=== PATIENT | female | born 1990 | race Caucasian/White ===

== ENCOUNTER 2024-11-12 21:58 | Emergency (ER) | payer MEDICAID, SELFPAY ==
--- NOTE | 2024-11-12 22:04 | PD.EDPSYCH ---
ED Psych RME/HPI General Chief Complaint: Psychiatric Symptoms Stated Complaint: EVALUATION Time Seen by Provider: 11/12/24 22:48 Arrival date/time: 11/12/24 21:58 RME / HPI RME / HPI Narrative: This section includes all my notes and documentations, including HPI, PE, and ED course. Ryan Reyes MD HPI: 34 y/o female presents to ED BIBA from mental health correction with thoughts of hurting herself and others. Difficult sorting out her story. She has trouble giving direct answers to my questions. She seems to have thoughts of hurting herself and others chronically but worse recently. When asked about specific plans, she mentions cutting herself and burning herself. She denies hallucinations. She has schizoaffective disorder and bipolar disorder. No other obvious complaints. ROS: All negative except as documented in HPI. Physical Exam: General:? Alert. Flight of ideas and delusions and paranoia noted. Eyes:? Conjunctivae and lids clear.? EOMI.? PERRL. ENT:? No nasal congestion.? Neck:? Supple.? Heart:? RRR.? Lungs:? No respiratory distress.? Good air movement.? No rhonchi, wheezing, rales.?? Abdomen:? Soft and nontender.? Legs:? No clubbing, cyanosis, edema.? Skin:? Warm and dry.?? Neuro:? Alert and oriented X 3.? Cranial Nerves II-XII grossly intact.? No peripheral motor deficits. I reviewed EMS and correction notes. I reviewed all diagnostic test results. Blood tests and urine tests unremarkable. At this point, diagnoses include possible suicidal/homicidal ideations and psychosis. Patient is medically cleared for evaluation by our ED career placement specialist. At 6 AM on 11/13/2024, the care of the patient was transferred to Dr. DAMIAN. Ryan Reyes MD Review of Systems Review of Systems Systems Reviewed: All systems reviewed, normal except as documented ED Exam Narrative Physical exam: Refer to HPI above Course Quality Measures none Orders Category Date Time Status Referral Psych Eval Stat Cons 11/13/24 01:22 Active Acetaminophen Stat Lab 11/12/24 22:42 Completed Alcohol, Blood Medical Stat Lab 11/12/24 22:42 Completed CBC Stat Lab 11/12/24 22:42 Completed CMP [Comprehensive Metabolic Panel] Stat Lab 11/12/24 22:42 Completed Drug Screen,Urine Stat Lab 11/12/24 22:40 Completed Free T4 (Free Thyroxine) Stat Lab 11/12/24 22:42 Completed Magnesium Stat Lab 11/12/24 22:42 Completed Salicylate Stat Lab 11/12/24 22:42 Completed TSH [Thyroid Stimulating Hormone] Stat Lab 11/12/24 22:42 Completed Vital Signs Vital signs: Vital Signs Temperature 97.3 F 11/12/24 22:06 Pulse Rate 96 11/12/24 22:06 Respiratory Rate 18 11/12/24 22:06 Blood Pressure 129/90 H 11/12/24 22:06 Pulse Oximetry (%) 97 11/12/24 22:06 Oxygen Delivery Method Room Air 11/12/24 22:06 Psych MDM Narrative MDM Narrative:: Scribe Attestation: [place] am scribing for and in the presence of Dr. Reyes. Provider Notation: Although this document has been carefully reviewed, there may still be some phonetic and other typographical errors. These errors are purely grammatical due to imperfections in the software program and should not be construed in any way to compromise the substance of the patient's medical care during this visit. 34 y/o female presents to ED [facility] from [facility] home c/o self-harm ideation. Patient denies SI/HI or any auditory or visual hallucinations. She wants to hurt herself, but not others. She has been cutting her wrists, but has no special plan. No other complaints. Patient data External records reviewed:: [facility] previous records (No prior ED records available for review.) and EMS form Clinical information provided by:: patient and EMS Social determinants that could affect healthcare access:: mental health Patient has the following chronic illnesses:: Schizoaffective disorder and bipolar disorder How is presenting disease/condition affected by chronic disease/condition?: exacerbated by Evaluation data The following diagnostics were reviewed and interpreted by me:: lab results Lab and/or radiology exams considered but not ordered:: None Interpretation Summary: Blood tests and urine tests unremarkable. Medications / Prescriptions Medications or Prescriptions considered but not ordered:: None Medication administrations:: None Consultations Consultation(s) initiated? (list below): No Diagnosis Psych Differential Diagnosis: acute psychosis, chronic schizophrenia, suicidal ideation, bipolar disorder, depression, drug-induced psychotic disorder, acute anxiety and other Most likely diagnosis given after review of the tests above:: Suicidal/homicidal ideations and psychosis. Admission Indicated Admission indicated?: not indicated Explain why admission is indicated or not indicated:: No psychiatric services here. Admission Request Was there a request for admission?: No Disposition Plan Disposition Plan: other (specify) (Care of the patient was transferred to Dr. DAMIAN.) Discharge Plan Prescriptions/Referrals Referrals: No Primary/Family,Physician [Primary Care Provider] - In 1 week Problem List Clinical Impression: Suicidal ideation, Homicidal ideation Patient/Caregiver Discharge Instructions Print Language: Tuvaluan
[2024-11-12 22:06] VITALS: BP 129/90; PULSE 96; RESP 18; TEMP 36.3; O2SAT 97
[2024-11-12 22:47] LABS: Basophils % (Auto) 0 % (0-2.5); Eosinophils % (Auto) 0 % (0-10); Hematocrit 37.9 % (36.0-46.0); Hemoglobin 13.1 g/dL (12.0-16.0); Immature Granulocytes % (Auto) 0 % (0-0); Immature Granulocytes Auto 0.03 Thou/mm3 (0.00-0.00); Lymphocytes # (Auto) 3.4 Thou/mm3 (1.0-4.8); Lymphocytes % (Auto) 31 % (10-50); Mean Corpuscular HGB Conc 34.6 g/dl (31.0-37.0); Mean Corpuscular Hemoglobin 29.8 pg (25.0-35.0); Mean Corpuscular Volume 86 fL (80-100); Monocytes # (Auto) 0.8 Thou/mm3 (0.0-0.8); Monocytes % (Auto) 8 % (0-12); Neutrophils # (Auto) 6.6 Thou/mm3 (1.8-7.7); Neutrophils % (Auto) 61 % (37-80); Nucleated Red Blood Cell % 0 /100 WBC (0); Platelet Count 233 Thou/mm3 (140-440); RDW Standard Deviation 39.3 fL (36.4-46.3); White Blood Count 10.9 Thou/mm3 (3.6-11.0)
[2024-11-12 22:57] LABS: Amphetamine/Methamp Scrn,U Negative (Negative); Barbiturate Screen,Urine Negative (Negative); Benzodiazepines Screen,Urine Negative (Negative); Benzoylecgonine Screen, Ur Negative (Negative); Fentanyl Screen,Urine Negative (Negative); Opiate Screen,Urine Negative (Negative); THC Screen,Urine Negative (Negative)
[2024-11-12 23:10] VITALS: PULSE 92; O2SAT 98; BMI 37.9
--- NOTE | 2024-11-12 23:15 | PC.NURSE ---
PT ALERT AND CALM BROUGHT TO ER BY AMBULANCE FROM [facility] FOR MENTAL EVALUATION. PER EMS CRISIS ON SCENE PLACED PT ON 5150. PT STATES SHE GOT ANGRY AT OTHER CLIENTS AND WAS HAVING THOUGHTS OF SELF HARM AND HARM TO OTHERS. STATES SHE DID NOT ACT OUT ON THESE THOUGHTS. PT REPORTS HISTORY OF CUTTING SELF OVER A YEAR AGO. DENIES ANY AUDITORY OR VISUAL HALLUCINATIONS. PT PLACED IN GOWN AND BELONGINGS PACED IN LOCKER. SITTER OUTSIDE OF ROOM.
[2024-11-12 23:18] LABS: Acetaminophen < 2.0 mcg/mL (10.0-20.0); Alanine Aminotransferase 27 U/L (10-49); Albumin/Globulin Ratio 2.1 (1.2-2.2); Alcohol, Blood Medical < 3.0 mg/dL (0-10.0); Alkaline Phosphatase 124 U/L (46-116); Anion Gap 11 (7-16); Aspartate Amino Transferase 20 U/L (0-34); BUN/Creatinine Ratio 11 Ratio (12-20); Bilirubin,Total 0.3 mg/dL (0.3-1.2); Blood Urea Nitrogen 12 mg/dL (9-23); Calcium 9.5 mg/dL (8.3-10.6); Calcium (Corrected) 9.5 mg/dL (8.5-10.1); Carbon Dioxide 25.2 mMol/L (20.0-31.0); Chloride 104 mMol/L (98-107); Creatinine (Component) 1.1 mg/dL (0.6-1.3); Free T4 (Free Thyroxine) 1.34 ng/dL (0.89-1.76); Globulin 2.4 gm/dL (2.3-3.5); Glucose 102 mg/dL (74-106); Magnesium 1.8 mg/dL (1.6-2.6); Osmolality,Calculated 279 (275-295); Potassium 3.8 mMol/L (3.4-5.1); Salicylate < 3.0 mg/dL; Sodium 140 mMol/L (136-145); Thyroid Stimulating Hormone 3.34 uIU/mL (0.55-4.78); Total Protein 7.4 gm/dL (5.7-8.2); eGFR > 60 See Note
[2024-11-13] VITALS (7 sets, daily range): BP systolic 112–141; BP diastolic 74–90; PULSE 85–94; RESP 18–20; TEMP 36.4–37; O2SAT 94–97
--- NOTE | 2024-11-13 06:13 | EDNOTE_ITS ---
Emergency Room Addendum Addendum Narrative: 0600: Care assumed from Dr. Reyes, the previous shift emergency physician. Past medical, surgical, social and family history reviewed. Vitals and home medications reviewed. I will assume the care of the patient at this time, pending mental health evaluation. Patient already medically cleared for psychiatric evaluation. Please refer to the emergency department record for history and examination from initial visit.? The patient was placed in ED observation care at 11/13/2024 at 0600 hours. The patient was placed in ED observation care pending mental health evaluation. Then, [facility] placed her on 5150 hold and now on observation care because of undifferentiated decompensated behavioral health evaluation, no behavioral health bed available. The patients past medical history, social history, and family history were reviewed. The plan of care will include serial examinations. While in ED observation the patient will have access to water, food, and personal hygiene. If the patient takes home medication(s), they will be contin ued in ED observation. Physical exam by me shows patient under no acute distress at this time. 0734: [facility] placed the patient on a 5150 hold, pending placement. 1600: Patient has been accepted to [facility] by Dr. Zendejas. ETA is is unknown at this time. 1745: EMS here to pick the patient and transport to [facility]. ED observation care ended at 11/13/2024 at 1745 hours.
--- NOTE | 2024-11-13 07:35 | PC.CC ---
Patient is a 34 year-old female BIBA on a 5150-hold by [facility] Turret Lathe Set Up Operator, Lisa Dumont for Danger to Self and Others. The patient is conserved by [facility], Conservator is Luis Michel . JOHNWNicanor met with patient [id number] to complete assessment. ASW introduced self, role, and reason for assessment. ASW disclosed limits of confidentiality as well. Patient appeared alert and oriented to self and place. Patient made little eye contact with this conventional mortgage underwriter, her behavior was calm and euthymic throughout assessment. Patient?s thought process was not linear and organized. Patient reports she has been endorsing suicidal ideations as she has not been acting out on her anger which causes her to be suicidal. Patient denying having a plan or intention but stated, ?I cannot go back to the home because I cannot keep myself safe.? Patient denied homicidal, visual and auditory hallucinations at the time of encounter. Patient has mental health diagnosis of Schizoaffective Bipolar Type. Patient is followed by a psychiatrist but does not know their name. Patient reports she is compliant with her medication. Patient?s 5150-hold will be upheld. Patient was provided with advisement of 5150-hold Dr. Langford, mannequin decorator Zander, and bedside RN Roque were made aware of 5150-hold and discharge plan to LPS facility. ASW to send referral via [facility] to [facility] Facilities.
--- NOTE | 2024-11-13 08:26 | PC.CC ---
JOHNWBrea attempted to make contact with Conservator, Avila Michel and left a voicemail.
--- NOTE | 2024-11-13 10:39 | PC.CC ---
ASWBrea attempted to make telephone contact with Conservator but was informed by staff that Avila is not in today but staff, Candice can assist in securing placement for patient and requested packet be faxed to [phone]. ASW faxed packet.
--- NOTE | 2024-11-13 12:35 | PC.CC ---
HYDROELECTRIC SYSTEMS TECHNICIAN student made contact with the following facilities: 10:31- [facility]- Spoke to Willa who reports patient was denied due to behavior issues. 10:33- [facility]- No answer 10:43- [facility]- No answer
--- NOTE | 2024-11-13 14:19 | PC.CC ---
Brea STEWARD called [facility] Guardian to follow up on placement for the patient. ASW was transferred to [facility] guardian who reports that he will contact someone at their inpatient hospital [facility] and will have them call this repairer typewriter back to see if they are able to accommodate patient.
--- NOTE | 2024-11-13 14:23 | PC.CC ---
14:22 [facility] packet was recived but they currently do not have any female beds available.
--- NOTE | 2024-11-13 16:03 | PC.CC ---
Patient was accepted to [facility] in [place], this was arranged by [facility] to their own facility. Accepting provider is Dr. Zendejas. ASW provided accepting information to Dr. Langford, recyclable products sorter Zander, and bedside RN Roque. Patient was provided with accepting information and was receptive. ASW provided information to staff Elsy at [facility] the facility where the patient came from.
== END 2024-11-13 18:00 ==
PROVIDERS: Emergency Provider Emergency Medicine
DX: Z04.6 Encounter for general psychiatric examination, requested by authority (principal); R45.851 Suicidal ideations; R45.850 Homicidal ideations; F25.9 Schizoaffective disorder, unspecified; F31.9 Bipolar disorder, unspecified; Z75.1 Person awaiting admission to adequate facility elsewhere
CPT/HCPCS: 36415; 80053; 80307; 80320; 80329; 83735; 84439; 84443; 85025; 90839; 96127; 99285; G0480